=== PATIENT | female | born 2000 | race Two or more races ===

== ENCOUNTER 2019-11-21 13:30 | Inpatient (IN) | payer OTHER ==
[~2019-11-21] VITALS: Ht 157.5 cm; Wt 81.2 kg
[2019-12-17] MEDS ORDERED: PRENATAL TABLE1 EAC1 PO (06:10)
== END 2019-12-20 13:06 | disposition home or self-care (01) | DRG 788 ==
LOC: OB/GYN 11-25 13:30 → LDR 12-17 05:17 → OB/GYN 12-17 17:01
PROVIDERS: ADMIT Obstetrics & Gynecology
PROC: 3E033VJ Introduction of Other Hormone into Peripheral Vein, Percutaneous Approach (ICD-10-PCS; 2019-12-17)
PROC: 10907ZC Drainage of Amniotic Fluid, Therapeutic from Products of Conception, Via Natural or Artificial Opening (ICD-10-PCS; 2019-12-17)
PROC: 4A1HXCZ Monitoring of Products of Conception, Cardiac Rate, External Approach (ICD-10-PCS; 2019-12-17)
PROC: 10D00Z1 Extraction of Products of Conception, Low, Open Approach (ICD-10-PCS; principal; 2019-12-17 16:00)
DX: O82 Encounter for cesarean delivery without indication (principal); O64.8XX0 Obstructed labor due to other malposition and malpresentation, not applicable or unspecified; Z3A.40 40 weeks gestation of pregnancy; Z37.0 Single live birth